=== PATIENT | female | born 1990 | race Caucasian/White ===

== ENCOUNTER 2020-06-01 11:50 | Emergency (ER) | payer SELFPAY ==
[~2020-06-01] VITALS: Ht 160 cm; Wt 81.6 kg
[2020-06-01 11:54] VITALS: BP 145/74; Ht 160 cm; Wt 81.6 kg
== END 2020-06-01 13:31 | disposition home or self-care (01) ==
LOC: ED 11:50
DX: U07.1 COVID-19 (principal); I10 Essential (primary) hypertension
CPT/HCPCS: Q0092; U0003-CS